=== PATIENT | male | born 1980 | race African-American/Black ===

== ENCOUNTER 2016-11-29 08:31 | Emergency (ER) | payer SELFPAY ==
[~2016-11-29] VITALS: Ht 165.1 cm; Wt 72.7 kg
[2016-11-29] MEDS ORDERED: IBUPROFEN 400 MG TABLET PO ONE (10:45)
[2016-11-29 11:35] VITALS: BP 150/90
== END 2016-11-29 11:39 | disposition home or self-care (01) ==
LOC: EMS 08:33
DX: M25.511 Pain in right shoulder (principal); M54.5 Low back pain; R03.0 Elevated blood-pressure reading, without diagnosis of hypertension; V49.40XA Driver injured in collision with unspecified motor vehicles in traffic accident, initial encounter; Y93.89 Activity, other specified; Y92.89 Other specified places as the place of occurrence of the external cause; Y99.8 Other external cause status
CPT/HCPCS: 72100; 99284